=== PATIENT | female | born 1970 | race American Indian/Alaskan Native ===

== ENCOUNTER 2016-12-23 17:57 | Emergency (ER) | payer SELFPAY ==
--- NOTE | 2016-12-23 22:14 | Emergency Department Report ---
HPI - General Chief Complaint: Upper Respiratory Infection Time Seen by Provider: 12/23/16 22:09 - HPI HPI: 46-year-old -[place] female comes in for cough that she has greater than 1 month. Patient admits that she had a cold about a month ago that cleared up but she still has this lingering cough. She reports that her cough can be as violently where she will actually vomit afterwards. Patient reports she has not tried any medication. She did say that she had tried DayQuil during her cold symptoms but has not tried anything since she's had this constant cough. Patient denies any nausea no vomiting no fever no chills no nasal secretions no sneezing or runny eyes no fever. She reports she does have a history of hypertension and obesity ED Past Medical Hx - Past Medical History Hx Hypertension: Yes Hx Diabetes: Yes Additional medical history: OBESITY - Surgical History Past Surgical History?: No - Social History Smoking Status: Never Smoker Substance Use Type: None - Medications Home Medications: Home Medications Medication Instructions Recorded Confirmed Last Taken Type Loratadine [Claritin] 10 mg PO DAILY #30 tablet 12/23/16 Unknown Rx Promethazine /Codeine 5 ml PO Q6H PRN #100 udc 12/23/16 Unknown Rx [Phenergan/Codeine 6.25-10 mg/5 ml] ED Review of Systems ROS: Stated complaint: COUGH Other details as noted in HPI Physical Exam - Physical Exam Vital Signs: Vital Signs 12/23/16 18:32 Temperature 98.2 F Pulse Rate 100 H Respiratory 19 Rate Blood Pressure 178/94 O2 Sat by Pulse 100 Oximetry General: GENERAL: Alert and oriented x3, no apparent distress, Normal Gait, atraumatic Physical Exam: . HEAD: Head is normocephalic and a-traumatic. EYES: Extra ocular muscles are intact. Pupils are equal, round, and reactive to light and accommodation. EARS: symetrical, atraumatic, non tender, ear canal clear and moderate cerumen, tympanic membrance non inflamed. gross auditory nml bilaterally. NOSE: Nose symetrical, Nontender,Nares appeared normal. MOUTH:Mouth is well hydrated and without lesions. Tonsils nonerythematous or swollen, Uvula midline, Tongue not elevated. Mucous membranes are moist. Posterior pharynx clear, no exudate or lesions. Patent airways. Nasal drip NECK: Supple. Non edematous, No carotid bruits. No lymphadenopathy or thyromegaly. LUNGS: Symetrical with respiration, No wheezing, no rales or crackles, CTAB. HEART: S1, S2 present, regular rate and rhythm without murmur, no rubs, no gallops. PSYCHIATRIC: Mood is congruent with affect, denies suicidal or homicidal ideations. SKIN: Warm and dry, No lesions, No ulceration or induration present ED Course Vital Signs 12/23/16 18:32 Temperature 98.2 F Pulse Rate 100 H Respiratory 19 Rate Blood Pressure 178/94 O2 Sat by Pulse 100 Oximetry ED Medical Decision Making - Medical Decision Making Since been evaluated by this provider fast track. Discussed with patient that this is most likely allergies with postnasal drip we will place patient on Claritin and give her prescription for promethazine with codeine for cough. Discussed the patient only to take it when she really needs it for her cough. Discussed the patient do not drive while taking this medication. Patient verbalized understanding Critical care attestation.: If time is entered above; I have spent that time in minutes in the direct care of this critically ill patient, excluding procedure time. ED Disposition Clinical Impression: Cough Disposition: DISCHARGED TO HOME OR SELFCARE Is pt being admited?: No Does the pt Need Aspirin: No Condition: Stable Instructions: Antitussives (By mouth) Additional Instructions: He is taking medication as prescribed to not operate machinery or drive a car while on the promethazine with codeine. Please follow-up the primary care provider for health maintenance. Prescriptions: Loratadine [Claritin] 10 mg PO DAILY #30 tablet Promethazine /Codeine [Phenergan/Codeine 6.25-10 mg/5 ml] 5 ml PO Q6H PRN #100 udc PRN Reason: cough Referrals: PRIMARY CARE, [Primary Care Provider] - 3-5 Days [facility] [Outside] - 3-5 Days Forms: Work/School Release Form(ED)
[2016-12-23] MEDS ORDERED: CATAPRES PO ONE (22:36)
[2016-12-23 23:31] VITALS: BP 152/102
== END 2016-12-23 23:32 | disposition home or self-care (01) ==
LOC: ED 17:57
DX: R05 Cough (principal); I10 Essential (primary) hypertension; E11.9 Type 2 diabetes mellitus without complications
CPT/HCPCS: 99282